=== PATIENT | female | born 1990 | race Caucasian/White ===

== ENCOUNTER 2022-07-01 16:50 | Emergency (ER) | payer BC, SELFPAY ==
[2022-07-01 17:31] VITALS: BP 138/93; PULSE 82; RESP 16; TEMP 36.9; O2SAT 99; BMI 24.7
--- NOTE | 2022-07-01 17:49 | EXP.UTC ---
Discharge Plan Disposition Patient Disposition: Home, Self-Care Condition: Good Prescriptions Prescriptions: New methylprednisolone [Medrol (Herson)] 4 mg tablets,dose pack See Rx Instructions .Route .COMPLEX 6 Days Qty: 21 0RF Rx Instructions: taper pack; hydrocortisone 2.5 % cream 1 applic topical BID PRN (Reason: skin irritation) Qty: 30 0RF Rx Instructions: apply to rash as directed Referrals Follow up/Referrals: Shady Asencio [Primary Care Provider] - See instructions Activity Restrictions/Add. Instructions Additional Instructions/Restrictions: Take medication as prescribed Over the counter Benadryl may help with itching Oatmeal bathes may help too soothe the skin Follow up with your Family Doctor if no improvment or any worsening of symptoms Clinical Impressions Clinical Impression: Allergic dermatitis Instructions Patient Instructions: Contact Dermatitis Discharge ED Provider: Phylicia Donahue [facility] [place] HPI General Stated complaint: RASH ON BODY Mode of Arrival: Ambulatory Source of Information: Patient Limitations: No Limitations Time Seen by Provider: 07/01/22 17:49 Description of Symptoms (Recalled from Triage Doc. by RN): pt comes in with c/o rash. pt went to [facility] on a vacation and while there began having the rash and since she has returned home the rash has gotten worse. HEENT Symptoms (Recalled from RN notes): No Resp Symptoms (Recalled from RN notes): No Skin Symptoms (Recalled from RN notes): Yes MS Symptoms (Recalled from RN notes): No Functional Status (Recalled from RN notes): n/a History of Present Illness Provider Complaint: Patient states that she was recently in [facility] and not sure what she may have got into but she and her broke out in rash all over their bodys and have been itching States that he was seen earlier today and given steriod injection but she doesnt want to take a shot she will take oral medication and cream for it but no shots Related Data Previous Rx's Medication Instructions Recorded hydrocortisone 2.5 % topical cream 1 applic topical BID PRN skin 07/01/22 irritation #30 grams methylprednisolone 4 mg tablets in See Rx Instructions .Route 07/01/22 a dose pack (Medrol (Herson)) .COMPLEX 6 days #21 tabs Allergies Allergy/AdvReac Type Severity Reaction Status Date / Time Penicillins Allergy Verified 07/01/22 17:40 Worker's Comp Is this a Worker's Comp case?: No PFSH PFSH Social History (Updated 07/01/22 @ 17:40 by Jayden Miller RN) Smoking Status: Never smoker alcohol intake: never current occupational status: employed Travel in the last 8 weeks: Outside the continental [facility] ROS Obtained: Yes All systems reviewed & no additional complaints except as documented and Yes Systems reviewed as appropriate & no additional complaints except as documented Constitutional Constitutional: Reports system reviewed and no additional complaints, except as documented and Reports as per HPI Cardiovascular Cardiovascular: Reports system reviewed and no additional complaints, except as documented and Reports as per HPI Respiratory Respiratory: Reports system reviewed and no additional complaints, except as documented and Reports as per HPI Integumentary/Breasts Skin/Breast: Reports system reviewed and no additional complaints, except as documented, Reports as per HPI, Reports pruritus and Reports rash Physical Exam General General appearance: alert and in no apparent distress ENT ENT exam: Present normal exam, normal oropharynx, mucous membranes moist and TM's normal bilaterally Respiratory Respiratory exam: Present normal lung sounds bilaterally and respiratory distress Cardiovascular Cardiovascular exam: Present regular rate and normal rhythm; Absent bradycardia Neurological Exam Neurological exam: Present alert and oriented X3 Skin Skin exam: Present other (red raised eczematous rash noted all over body appears like con
[2022-07-01 18:13] VITALS: BP 138/93; PULSE 82; RESP 16; TEMP 36.9
== END 2022-07-01 18:15 | disposition home or self-care (01) ==
PROVIDERS: Emergency Provider Nurse Practitioner; PCP Family Medicine
DX: L23.9 Allergic contact dermatitis, unspecified cause (principal)
CPT/HCPCS: 99212; G0463

== ENCOUNTER 2023-07-16 19:24 | Emergency (ER) | payer BC, SELFPAY ==
[2023-07-16 19:24] VITALS: BP 141/99; PULSE 97; RESP 18; TEMP 36.4; O2SAT 99; BMI 26.2
--- NOTE | 2023-07-16 19:53 | EXP.UTC ---
Discharge Plan Disposition Patient Disposition: Home, Self-Care Condition: Good Prescriptions Prescriptions: New azithromycin [azithromycin] 250 mg tablet 250 mg PO DIRECTED Qty: 4 0RF Rx Instructions: one (1) tablet day #2 thru #5- first dose in [facility] No Action methylprednisolone [Medrol (Herson)] 4 mg tablets,dose pack See Rx Instructions .Route .COMPLEX 6 Days Qty: 21 0RF Rx Instructions: taper pack; hydrocortisone 2.5 % cream 1 applic topical BID PRN (Reason: skin irritation) Qty: 30 0RF Rx Instructions: apply to rash as directed Referrals Follow up/Referrals: Shady Asencio [Primary Care Provider] - See instructions Clinical Impressions Clinical Impression: Strep sore throat Instructions Patient Instructions: DI for Strep Throat [facility] [place] HPI General Stated complaint: sore throat Mode of Arrival: Ambulatory Source of Information: Patient Limitations: No Limitations Time Seen by Provider: 07/16/23 19:53 HEENT Symptoms (Recalled from RN notes): Yes History of Present Illness Provider Complaint: 33 yr old female presents for sore throat. pt states throat started on tuesday and then continues to worsen Related Data Previous Rx's Medication Instructions Recorded hydrocortisone 2.5 % topical cream 1 applic topical BID PRN skin 07/01/22 irritation #30 grams methylprednisolone 4 mg tablets in See Rx Instructions .Route 07/01/22 a dose pack (Medrol (Herson)) .COMPLEX 6 days #21 tabs azithromycin 250 mg tablet 250 mg PO DIRECTED #4 tabs 07/16/23 Allergies Allergy/AdvReac Type Severity Reaction Status Date / Time Penicillins Allergy Verified 07/01/22 17:40 [facility] Disclaimer: The information contained in this section may have been updated after the patient was seen, as this information can be updated by other users. Social History , [employer]) Smoking Status: Never smoker alcohol intake: never current occupational status: employed Travel in the last 8 weeks: Outside the continental [facility] ROS Obtained: Yes All systems reviewed & no additional complaints except as documented Constitutional Constitutional: Reports system reviewed and no additional complaints, except as documented Eyes Eyes: Reports system reviewed and no additional complaints, except as documented ENT Ears, Nose, Mouth, and Throat: Reports system reviewed and no additional complaints, except as documented, Reports as per HPI and Reports sore throat Cardiovascular Cardiovascular: Reports system reviewed and no additional complaints, except as documented Respiratory Respiratory: Reports system reviewed and no additional complaints, except as documented Gastrointestinal Gastrointestingal: Reports system reviewed and no additional complaints, except as documented Musculoskeletal Musculoskeletal: Reports system reviewed and no additional complaints, except as documented Integumentary/Breasts Skin/Breast: Reports system reviewed and no additional complaints, except as documented Neurologic Neurologic: Reports system reviewed and no additional complaints, except as documented Endocrine Endocrine: Reports system reviewed and no additional complaints, except as documented Hematologic/Lymphatic Henatologic/Lymphatic: Reports system reviewed and no additional complaints, except as documented Physical Exam General General appearance: alert and in no apparent distress Head Head exam: atraumatic Eye Eye exam: Present normal appearance and PERRL ENT ENT exam: Present TM's normal bilaterally Respiratory Respiratory exam: Present normal lung sounds bilaterally Cardiovascular Cardiovascular exam: Present regular rate and normal rhythm Neurological Exam Neurological exam: Present alert and oriented X3 Skin Skin exam: Present warm Medical Decision Making Medical Records Medical records reviewed
[2023-07-16 20:28] VITALS: BP 141/99; PULSE 97; RESP 18; TEMP 36.4; O2SAT 99
[2023-07-17 12:57] LABS: UTC Strep Screen (Rapid) Negative (Negative)
== END 2023-07-16 20:28 | disposition home or self-care (01) ==
PROVIDERS: Emergency Provider Nurse Practitioner Family; PCP Family Medicine
DX: J02.0 Streptococcal pharyngitis (principal)
CPT/HCPCS: 87880; 99212; 99214; G0463

== ENCOUNTER 2023-07-28 14:03 | Emergency (ER) | payer BC, SELFPAY ==
[2023-07-28 14:20] VITALS: BP 141/86; PULSE 83; RESP 20; TEMP 36.9; O2SAT 97; BMI 25.6
--- NOTE | 2023-07-28 14:51 | EXP.UTC ---
Discharge Plan Disposition Patient Disposition: Home, Self-Care Condition: Good Referrals Follow up/Referrals: Tae Lazaro [Primary Care Provider] - See instructions Activity Restrictions/Add. Instructions Additional Instructions/Restrictions: *Monitor Temp, Over the counter Motrin or Tylenol as directed/as needed Tylenol every 4 hours and Motrin every 6 hours (as long as your family doctor has told you that you can take it) for fever or pain. and straight to ER if unable to lower temp less than 101.0 after medication given *Warm salt water gargles may help to soothe the throat *Throat Lozenges? *Warm fluids like tea with honey may help to soothe the throat? *Sleep elevated *Humidifier/Vaporizer *Flonase 2 sprays in each nostril daily but be aware that it may take 2-3 days before you notice improvement Your throat swab was sent for culture. Those results are typically sent to your primary care. Be sure to follow up in 2-3 days with your family doctor/primary care physician if no improvement so they can review those result and treat if necessary. If you don?t have a primary care doctor, I recommend you get one but in the mean time, you will have to return to a walk in clinic Follow up IMMEDIATELY for new or worsening symptoms or no Noticeable improvement over the next 48-72 hours. 911 for difficulty breathing or swallowing Clinical Impressions Clinical Impression: Viral pharyngitis Instructions Patient Instructions: Sore Throat, DI for Viral Pharyngitis Discharge ED Provider: Phylicia Donahue [facility] [place] HPI General Stated complaint: sore throat, congestion Mode of Arrival: Ambulatory Source of Information: Patient Limitations: No Limitations Time Seen by Provider: 07/28/23 14:52 Description of Symptoms (Recalled from Triage Doc. by RN): PATIENT C/O SORE THROAT, CONGESTION, AND FATIGUE THAT STARTED OVER THE WEEKEND. SHE STATES SHE WAS RECENTLY TREATED FOR STREP AND STARTED TO FEEL BETTER, BUT SYMPTOMS RETURNED HEENT Symptoms (Recalled from RN notes): Yes Resp Symptoms (Recalled from RN notes): No Skin Symptoms (Recalled from RN notes): No MS Symptoms (Recalled from RN notes): No Functional Status (Recalled from RN notes): WNL History of Present Illness Provider Complaint: Patient states that she was recently seen and treated for strep throat and finished the medication states that she was feeling better but now symptoms has returned States that she is having sore throat, fatigue and over all not feeling well so today she came back in States that her friends daughter has mono Related Data Allergies Allergy/AdvReac Type Severity Reaction Status Date / Time Penicillins Allergy Verified 07/16/23 20:06 Worker's Comp Is this a Worker's Comp case?: No [facility] Disclaimer: The information contained in this section may have been updated after the patient was seen, as this information can be updated by other users. Medical History (Updated 07/28/23 @ 15:16 by Phylicia Donahue APRN) Urinary tract infection Social History Smoking Status: Never smoker alcohol intake: never current occupational status: employed Travel in the last 8 weeks: Outside the [facility] ROS Obtained: Yes All systems reviewed & no additional complaints except as documented and Yes Systems reviewed as appropriate & no additional complaints except as documented Constitutional Constitutional: Reports system reviewed and no additional complaints, except as documented, Reports as per HPI and Reports fatigue Eyes Eyes: Reports system reviewed and no additional complaints, except as documented and Reports as per HPI ENT Ears, Nose, Mouth, and Throat: Reports system reviewed and no additional complaints, except as documented, Reports as per HPI and Reports sore throat Cardiovascular Cardiovascular: Reports system reviewed and no additional co
[2023-07-28 15:11] LABS: Monoscreen (Rapid) Negative (Negative)
[2023-07-28 15:20] VITALS: BP 141/86; PULSE 83; RESP 20; TEMP 36.9; O2SAT 97
== END 2023-07-28 15:24 | disposition home or self-care (01) ==
PROVIDERS: Emergency Provider Nurse Practitioner; PCP Obstetrics & Gynecology Gynecology
DX: J02.9 Acute pharyngitis, unspecified (principal); R09.81 Nasal congestion; R53.83 Other fatigue; B34.9 Viral infection, unspecified
CPT/HCPCS: 86318; 99212; 99213; G0463

== ENCOUNTER 2023-12-05 16:16 | Emergency (ER) | payer BC, SELFPAY ==
[2023-12-05 16:30] VITALS: BP 146/86; PULSE 126; RESP 20; TEMP 39.4; O2SAT 97; BMI 26.8
--- NOTE | 2023-12-05 16:40 | ED_ITS ---
Discharge Plan Disposition Patient Disposition: Home, Self-Care Condition: Good Prescriptions Prescriptions: New azithromycin [Zithromax Z-Herson] 250 mg tablet See Rx Instructions .ROUTE .COMPLEX 5 Days Qty: 6 0RF Rx Instructions: For 250 mg dose pack: take 500 mg today (day 1), then 250 mg for 4 days (days 2-5) ondansetron 4 mg Tablet,Disintegrating 4 mg PO Q8H PRN (Reason: Nausea) Qty: 20 0RF Referrals Follow up/Referrals: Shady Asencio [Primary Care Provider] - See instructions Activity Restrictions/Add. Instructions Additional Instructions/Restrictions: *Monitor Temp, Over the counter Motrin or Tylenol as directed/as needed Tylenol every 4 hours and Motrin every 6 hours (as long as your family doctor has told you that you can take it) for fever or pain. and straight to ER if unable to lower temp less than 101.0 after medication given *Warm salt water gargles may help to soothe the throat *Throat Lozenges? *Warm fluids like tea with honey may help to soothe the throat? *Sleep elevated *Humidifier/Vaporizer *If you did not take Penicillin shot or was unable to, start taking antibiotic immediately and make sure that you take it for the FULL length of time although you should start to feel better in 24-48 hours *change toothbrush and toothpaste 24-48 hours after starting to take antibiotics so you do not reinfect yourself Monitor Temp. Tylenol and/or Ibuprofen as needed. ER if fever is no less than 101 despite alternating Tylenol and Ibuprofen * Encourage fluids, water, Gatorade, powerade, pedialyte if /toddler/or child*Cold fluids, popsicles and ice cream may feel good on his throat Follow up IMMEDIATELY for new or worsening symptoms or no Noticeable improvement over the next 48-72 hours. 911 for difficulty breathing or swallowing Clinical Impressions Clinical Impression: Strep sore throat Instructions Patient Instructions: Strep Throat, DI for Strep Throat, DI for Fever (Symptom) -- Adult, DI for Headache Discharge ED Provider: Phylicia Donahue [facility] [place] HPI General Stated complaint: SOLOMON fever body aches Mode of Arrival: Ambulatory Source of Information: Patient Limitations: No Limitations Time Seen by Provider: 12/05/23 16:40 Description of Symptoms (Recalled from Triage Doc. by RN): PATIENT C/O FEVER, BODY ACHES, CHILLS, SORE THROAT AND VOMITING HEENT Symptoms (Recalled from RN notes): Yes Resp Symptoms (Recalled from RN notes): No Skin Symptoms (Recalled from RN notes): No MS Symptoms (Recalled from RN notes): No Functional Status (Recalled from RN notes): WNL History of Present Illness Provider Complaint: Patient states that she has been having fever, chills, body aches, headache, sore throat and vomiting States today she was feeling worse and noticed she had bad breath and she brushed her teeth but still had the smell on her breath States that she took Motrin earlier but it didnt help to bring her fever down so she came in to get checked Related Data Previous Rx's Medication Instructions Recorded azithromycin 250 mg tablet See Rx Instructions PO .COMPLEX 5 12/05/23 (Zithromax Z-Herson) days #6 tabs ondansetron 4 mg disintegrating 4 mg PO Q8H PRN Nausea #20 tabs 12/05/23 tablet Allergies Allergy/AdvReac Type Severity Reaction Status Date / Time Penicillins Allergy Verified 07/16/23 20:06 Worker's Comp Is this a Worker's Comp case?: No [facility] Disclaimer: The information contained in this section may have been updated after the patient was seen, as this information can be updated by other users. Medical History (Updated 12/05/23 @ 16:52 by Phylicia Donahue APRN) Urinary tract infection Social History Smoking Status: Never smoker alcohol intake: never current occupational status: employed Travel in the last 8 weeks: Outside the [facility] ROS Obtained: Yes All systems reviewed & no additional complaints except as documented and Yes Systems reviewed as appropriate & no additional complaints except as documented Constitutional Constitutional: Reports system reviewed and no additional complaints, except as documented, Reports as per HPI, Reports body ache, Reports chills, Reports fever(s) and Reports headache(s) ENT Ears, Nose, Mouth, and Throat: Reports system reviewed and no additional complaints, except as documented, Reports as per HPI, Reports headache(s) and Reports sore throat Cardiovascular Cardiovascular: Reports system reviewed and no additional complaints, except as documented and Reports as per HPI Respiratory Respiratory: Reports system reviewed and no additional complaints, except as documented and Reports as per HPI Gastrointestinal Gastrointestingal: Reports system reviewed and no additional complaints, except as documented, as per HPI, nausea and vomiting Neurologic Neurologic: Reports headache(s) Physical Exam General General appearance: alert and in no apparent distress ENT ENT exam: Present mucous membranes moist Expanded ENT Exam Throat exam: Present tonsillar erythema and tonsillar exudate Respiratory Respiratory exam: Present normal lung sounds bilaterally; Absent respiratory distress or wheezes Cardiovascular Cardiovascular exam: Present regular rate, normal rhythm and normal heart sounds Neurological Exam Neurological exam: Present alert, oriented X3 and normal gait Medical Decision Making Christiano Inquiry Pt receiving controlled substance: No Christiano was queried for this patient: No Vital Signs: 12/05/23 16:30 Temperature 102.9 F H Temperature Source Oral Pulse Rate [Left Brachial] 126 H Respiratory Rate 20 Blood Pressure [Left Arm] 146/86 H Blood Pressure Mean [Left Arm] 106 Blood Pressure Source [Left Arm] Automatic Cuff Blood Pressure Position [Left Arm] Sitting 02 Sat by Pulse Oximetry 97 Oxygen Delivery Method Room Air Lab Data Lab results reviewed: Yes I reviewed the patient's lab results. Medical Decision Narrative: Patient checked her phone to see what time she took Motrin and realized she took it at 815 this am not a few hours ago therefore will give Motrin in the [facility]
[2023-12-05] MEDS: ACETAMINOPHEN 325MG TAB 650 MG PO (16:43)
[2023-12-05] MEDS: ONDANSETRON 4MG ODT 4 MG SL (16:43)
[2023-12-05 16:48] LABS: UTC Influenza A Antigen Negative (Negative); UTC Strep Screen (Rapid) Positive (Negative)
[2023-12-05 16:51] LABS: UTC Influenza B Antigen Negative (Negative)
[2023-12-05] MEDS: IBUPROFEN 400 MG TABLET 800 MG PO (17:00)
[2023-12-05 17:05] VITALS: BP 146/86; PULSE 126; RESP 20; TEMP 38.9; O2SAT 97
== END 2023-12-05 17:35 | disposition home or self-care (01) ==
PROVIDERS: Emergency Provider Nurse Practitioner; PCP Family Medicine
DX: J02.0 Streptococcal pharyngitis (principal); R07.0 Pain in throat; R51.9 Headache, unspecified; R50.9 Fever, unspecified; R11.2 Nausea with vomiting, unspecified
CPT/HCPCS: 87804; 87880; 99212; 99214; G0463

== ENCOUNTER 2023-12-06 18:22 | Emergency (ER) | payer BC, SELFPAY ==
[2023-12-06 18:23] VITALS: BP 156/98; PULSE 95; RESP 18; TEMP 36.9; O2SAT 98; BMI 25.6
[2023-12-06] MEDS: LACTATED RINGERS 1000ML 1,000 ML 999 ML IV (18:38)
[2023-12-06] MEDS: diphenhydrAMINE 50MG/ML VIAL 25 MG IV (18:38)
[2023-12-06] MEDS: PROCHLORPERAZINE 10MG/2ML VIAL 10 MG IV (18:39)
[2023-12-06] MEDS: DEXAMETHASONE 4MG/ML 1ML VIAL 10 MG IV (18:39)
--- NOTE | 2023-12-06 18:39 | HMH.EDGENADL ---
Discharge Plan Disposition Patient Disposition: Home, Self-Care Prescriptions Prescriptions: New prochlorperazine maleate [Compazine] 10 mg tablet 10 mg PO Q6H PRN (Reason: nausea and vomiting) 1 Days Qty: 20 0RF No Action azithromycin [Zithromax Z-Herson] 250 mg tablet See Rx Instructions .ROUTE .COMPLEX 5 Days Qty: 6 0RF Rx Instructions: For 250 mg dose pack: take 500 mg today (day 1), then 250 mg for 4 days (days 2-5) ondansetron 4 mg Tablet,Disintegrating 4 mg PO Q8H PRN (Reason: Nausea) Qty: 20 0RF Referrals Follow up/Referrals: Shady Asencio [Primary Care Provider] - See instructions Activity Restrictions/Add. Instructions Additional Instructions/Restrictions: Call your family doctor to establish care for this visit to the emergency department and schedule follow-up within 48 hours to ensure improvement. If you have any worsening of your condition or any other concerning signs or symptoms, return to the emergency department or your primary care doctor for further evaluation. Compazine, Benadryl, acetaminophen, and ibuprofen for rebound headache. Clinical Impressions Clinical Impression: Migraine Qualifiers: Migraine type: other Status migrainosus presence: with status migrainosus Intractability: intractable Qualified Code(s): G43.811 - Other migraine, intractable, with status migrainosus Discharge ED Provider: Jorge Shipman General Adult HPI General Chief complaint: Headache Stated complaint: migraine, strep + Time Seen by Provider: 12/06/23 18:23 History of Present Illness HPI narrative: This is an otherwise healthy 33-year-old female presenting with migraine headache that is intractable. Patient has been having headache symptoms for about 2 days as well as sore throat. Was tested for strep pharyngitis yesterday, returned positive, patient started on azithromycin. Took her second dose today, 12/05. Patient states that she has had a headache that is crescendo in nature, largely right-sided, associated with photophobia and phonophobia, radiates into her right eye. It is severe in intensity, throbbing. refractory to ibuprofen and tylenol. No meningismus, vision changes, neurologic deficits, or any other concerns. Please note that above description of symptoms, in this electronic medical record under categorization of recalled from ER triage doctor by RN are reflective of an initial nursing assessment, however, is not reflective of my full history and physical exam that was personally taken and clarified. Consequentially, this preceding description of symptoms, which may include the patient's categorized chief complaint in the EMR, do not reflect my personal clinical impression, and the ultimate description of history of present illness and patient stated complaints should be deferred to this section of the note. Unless stated otherwise or congruent with this section of the note, additional signs, symptoms, or incongruence should be interpreted as inaccurate with my clinical impression. Related Data Previous Rx's Medication Instructions Recorded azithromycin 250 mg tablet See Rx Instructions PO .COMPLEX 5 12/05/23 (Zithromax Z-Herson) days #6 tabs ondansetron 4 mg disintegrating 4 mg PO Q8H PRN Nausea #20 tabs 12/05/23 tablet prochlorperazine maleate 10 mg 10 mg PO Q6H PRN nausea and 12/06/23 tablet (Compazine) vomiting 24 hours #20 tabs Allergies Allergy/AdvReac Type Severity Reaction Status Date / Time Penicillins Allergy Verified 12/06/23 18:46 PFSH [facility] Disclaimer: The information contained in this section may have been updated after the patient was seen, as this information can be updated by other users. Medical History (Updated 12/06/23 @ 19:48 by Jorge Shipman MD) Urinary tract infection Social History Smoking Status: Never smoker alcohol intake: never current occupational status: employed Travel in the last 8 weeks: Outside the [facility] ROS Obtained: Yes All systems reviewed & no additional complaints except as documented Physical Exam General General appearance: alert and in no apparent distress Head Head exam: atraumatic and normocephalic Eye Eye exam: Present normal appearance, PERRL and EOMI ENT ENT exam: Present mucous membranes moist Neck Neck exam: Present normal inspection, full ROM, trachea midline and lymphadenopathy; Absent meningismus Respiratory Respiratory exam: Absent respiratory distress, wheezes, stridor, accessory muscle use or prolonged expiratory phase Cardiovascular Cardiovascular exam: Present normal rhythm Abdominal Exam Abdominal exam: Present soft; Absent distention, tenderness, guarding, rebound or rigidity Extremities Exam Extremities exam: Absent edema Neurological Exam Neurological exam: Present alert, oriented X3, CN II-XII intact and normal gait; Absent motor sensory deficit Skin Skin exam: Present warm and dry; Absent diaphoresis or erythema Medical Decision Making Medical Records Medical records reviewed: Yes I reviewed the patient's medical records. Christiano Inquiry Pt receiving controlled substance: No Christiano was queried for this patient: No Vital Signs: 12/06/23 18:23 12/06/23 19:00 12/06/23 19:30 Temperature 98.4 F Temperature Source Oral Pulse Rate 82 80 Pulse Rate [Left Radial] 95 H Respiratory Rate 18 18 16 Blood Pressure 105/70 L 100/67 L Blood Pressure [Right Arm] 156/98 H Blood Pressure Mean 81 73 Blood Pressure Mean [Right Arm] 117 Blood Pressure Source [Right Arm] Automatic Cuff Blood Pressure Position [Right Arm] Sitting 02 Sat by Pulse Oximetry 98 96 98 Oxygen Delivery Method Room Air Room Air Room Air Orders (Tests/Meds): ED MEDICATIONS Discontinued Medications Generic Name Dose Route Start Last Admin Trade Name Freq PRN Reason Stop Dose Admin Dexamethasone Sodium Phosphate 10 mg 12/06/23 18:31 12/06/23 18:39 Dexamethasone 4mg/Ml 1ml Vial IV 12/06/23 18:32 10 mg ONCE ONE Administration Diphenhydramine HCl 25 mg 12/06/23 18:31 12/06/23 18:38 Diphenhydramine 50mg/Ml Vial IV 12/06/23 18:32 25 mg ONCE ONE Administration Lactated Ringer's 1,000 mls @ 999 mls/hr 12/06/23 18:31 12/06/23 18:38 Lactated Ringer's 1000 Ml Bag IV 12/06/23 19:31 999 mls/hr .Q1H1M ONE Administration Magnesium Sulfate 2 gm in 50 mls @ 50 mls/hr 12/06/23 18:31 12/06/23 18:40 Magnesium Sulfate 2gm/50ml Premix IV 12/06/23 19:30 50 mls/hr ONCE ONE Administration Ketorolac Tromethamine 15 mg 12/06/23 18:31 12/06/23 18:40 Ketorolac 30mg/Ml Vial IV 12/06/23 18:32 15 mg ONCE ONE Administration Prochlorperazine Edisylate 10 mg 12/06/23 18:31 12/06/23 18:39 Prochlorperazine 10mg/2ml Vial IV 12/06/23 18:32 10 mg ONCE ONE Administration Medical Decision Narrative: This is an otherwise healthy 33-year-old female presenting with migraine headache that is intractable. Patient has been having headache symptoms for about 2 days as well as sore throat. Was tested for strep pharyngitis yesterday, returned positive, patient started on azithromycin. Took her second dose today, 12/05. Patient states that she has had a headache that is crescendo in nature, largely right-sided, associated with photophobia and phonophobia, radiates into her right eye. It is severe in intensity, throbbing. refractory to ibuprofen and tylenol. No meningismus, vision changes, neurologic deficits, or any other concerns. History was obtained via conversation with patient. On arrival, patient hemodynamically stable, alert, oriented x4, appropriate, GCS 15, moving all extremities spontaneously, pupils equal and reactive to light. Full physical exam performed and significant for shotty cervical lymphadenopathy. Neurologically intact including cranial nerve, cerebellar, motor and sensory exams. Pain made better with application of pressure to the right side of the head. Differential includes migraine, headache, cerebral DVT, intracranial mass, among others. Patient was given Toradol, Decadron, fluids, Compazine, Benadryl, magnesium as migraine cocktail and reassess. On reassessment at approximately 7:45 PM, patient states that she feels much better. Minimal headache and ready to go home. Patient was given Compazine for home-going and close return precautions. Because patient at baseline without signs or symptoms of clinical decompensation, deemed appropriate for discharge. Results were relayed to patient who voiced understanding and were agreeable to outpatient management and follow up. I discussed my clinical impression with patient and answered all questions. At this time, the evidence for any other entities in the differential is insufficient to warrant any further testing or ED observation. This was explained as well. Advisory was given that persistent or worsening symptoms require further evaluation. I confirmed the understanding of this discussion. Critical Care Critical Care Time Critical Care Time: No
[2023-12-06] MEDS: MAGNESIUM SULFATE IN WATER 2 GM/50 ML PIGGYBACK IV (18:40)
[2023-12-06] MEDS: KETOROLAC 30MG/ML VIAL 15 MG IV (18:40)
[2023-12-06 19:00] VITALS: BP 105/70; PULSE 82; RESP 18; O2SAT 96
--- NOTE | 2023-12-06 19:12 | PC.NURSE ---
Pt states her headache is better, provided pillow, no other needs at this time.
[2023-12-06 19:30] VITALS: BP 100/67; PULSE 80; RESP 16; O2SAT 98
[2023-12-06 19:48] VITALS: BP 100/67; PULSE 78; RESP 16; TEMP 36.9; O2SAT 97
== END 2023-12-06 19:53 | disposition home or self-care (01) ==
PROVIDERS: Emergency Provider Emergency Medicine; PCP Family Medicine
DX: G43.811 Other migraine, intractable, with status migrainosus (principal)
CPT/HCPCS: 96365; 96375; 99285; J3475

== ENCOUNTER 2024-09-27 09:44 | Emergency (ER) | payer BC, SELFPAY ==
[2024-09-27 10:17] VITALS: BP 120/80; PULSE 102; RESP 18; TEMP 37; O2SAT 97; BMI 28.0
[2024-09-27 10:25] LABS: UTC Strep Screen (Rapid) Positive (Negative)
--- NOTE | 2024-09-27 10:36 | EXP.UTC ---
Discharge Plan Disposition Patient Disposition: Home, Self-Care Condition: Good Prescriptions Prescriptions: New clindamycin HCl 300 mg capsule 300 mg PO Q8H Qty: 30 0RF methylprednisolone 4 mg Tablets,Dose Pack 4 mg PO DIRECTED 6 Days Qty: 21 0RF Rx Instructions: Take 1 pack as directed for 6 days ondansetron 4 mg Tablet,Disintegrating 4 mg PO Q8H PRN (Reason: Nausea) Qty: 12 0RF Referrals Follow up/Referrals: Shady Asencio [Primary Care Provider] - See instructions Activity Restrictions/Add. Instructions Additional Instructions/Restrictions: Drink plenty of fluids. Take tylenol or ibuprofen for pain or fever. Take the medications as directed. Follow up with your regular doctor. GO TO THE ER FOR ANY WORSENING SYMPTOMS Throw your tooth brush away and get a new one. Clinical Impressions Clinical Impression: Strep throat Instructions Patient Instructions: Strep Throat, DI for Strep Throat, Ondansetron, Clindamycin, Methylprednisolone Print Language Print Language: Marshallese Discharge ED Provider: Geoff Centeno [facility] General Stated complaint: sore throat, fever, body aches, headache Mode of Arrival: Ambulatory Source of Information: Patient Time Seen by Provider: 09/27/24 10:36 Description of Symptoms (Recalled from Triage Doc. by RN): SORE THROAT, FEVER, BA, SOLOMON HEENT Symptoms (Recalled from RN notes): Yes Resp Symptoms (Recalled from RN notes): Yes Skin Symptoms (Recalled from RN notes): No MS Symptoms (Recalled from RN notes): No Functional Status (Recalled from RN notes): WNL History of Present Illness Provider Complaint: She states that for the past 2 days she has had worsening sore throat, fever, chills, and malaise. Related Data Previous Rx's ?Medication ?Instructions ?Recorded clindamycin HCl 300 mg capsule 300 mg PO Q8H #30 caps 09/27/24 methylprednisolone 4 mg tablets in 4 mg PO DIRECTED 6 days #21 tabs 09/27/24 a dose pack ondansetron 4 mg disintegrating 4 mg PO Q8H PRN Nausea #12 tabs 09/27/24 tablet Allergies Allergy/AdvReac Type Severity Reaction Status Date / Time Penicillins Allergy Verified 12/06/23 18:46 Worker's Comp Is this a Worker's Comp case?: No [facility] Disclaimer: The information contained in this section may have been updated after the patient was seen, as this information can be updated by other users. Medical History (Updated 09/27/24 @ 11:02 by Geoff Centeno APRN) Urinary tract infection Social History Smoking Status: Never smoker alcohol intake: never current occupational status: employed Travel in the last 8 weeks: Outside the [place] Have you lived/traveled outside US in past 30 days?: No Contact w/someone who lives/traveled outside US past 30 days?: No Exposure to someone with infectious disease in past 14 days?: No Do you have a fever (greater than 100.4 F or 38 C)?: No Have you tested positive for COVID-19: No Exposed to someone with COVID-19 in past 14 days?: No Do you have a sore throat?: Yes Do you have a cough?: No Do you have any weakness?: No Do you have any diarrhea?: No Are you experiencing any unusual bleeding?: No Do you have any muscle aches/pain?: Yes Do you have any abdominal pain?: No Are you experiencing loss of taste or smell?: No ROS Obtained: Yes All systems reviewed & no additional complaints except as documented Constitutional Constitutional: Reports chills and Reports fever(s) Eyes Eyes: Denies eye discharge ENT Ears, Nose, Mouth, and Throat: Reports as per HPI Cardiovascular Cardiovascular: Denies chest pain Respiratory Respiratory: Denies chest congestion and Reports cough Gastrointestinal Gastrointestingal: Reports nausea; Denies abdominal pain, constipation, cramping, diarrhea or vomiting Musculoskeletal Musculoskeletal: Denies arthralgias Integumentary/Breasts Skin/Breast: Denies rash Neurologic Neurologic: Denies paresthesias Physical Exam General General appearance: alert and in no apparent distress Head Head exam: atraumatic, normocephalic and normal inspection Eye Eye exam: Present normal appearance, PERRL and EOMI ENT ENT exam: Present mucous membranes moist and normal external ear exam Expanded ENT Exam TM/Canal exam: Bilateral TM: erythema and bulging Nose exam: Absent sinus tenderness Mouth exam: Present normal external inspection; Absent drooling Teeth exam: Present normal inspection Throat exam: Present tonsillar erythema, tonsillomegaly and tonsillar exudate Neck Neck exam: Present normal inspection, full ROM and trachea midline; Absent tenderness, meningismus or lymphadenopathy Chest Chest inspection: Present normal inspection and symmetric chest wall rise; Absent tenderness Respiratory Respiratory exam: Present normal lung sounds bilaterally; Absent respiratory distress, wheezes, stridor or accessory muscle use Cardiovascular Cardiovascular exam: Present regular rate and normal rhythm; Absent systolic murmur or diastolic murmur Abdominal Exam Abdominal exam: Present soft and normal bowel sounds; Absent distention, tenderness, guarding, rebound or rigidity Extremities Exam Extremities exam: Present normal inspection and normal capillary refill; Absent calf tenderness Back Exam Back exam: Present normal inspection and full ROM; Absent tenderness, CVA tenderness (R) or CVA tenderness (L) Neurological Exam Neurological exam: Present alert, oriented X3 and CN II-XII intact Psychiatric Psychiatric exam: Present normal affect and normal mood Skin Skin exam: Present warm, dry, intact and normal color Medical Decision Making Medical Records Medical records reviewed: No I reviewed the patient's medical records. Screening: Per USPSTF and CDC recommendations, given the prevalence of disease in our region, it is our hospital?s policy to screen for HIV and viral Hepatitis for all patients aged 18 and over and those with ongoing risk factors. Christiano Inquiry Pt receiving controlled substance: No Vital Signs: 09/27/24 10:17 Temperature 98.6 F Temperature Source Oral Pulse Rate [Left Radial] 102 H Respiratory Rate 18 Blood Pressure [Left Arm] 120/80 Blood Pressure Mean [Left Arm] 93 02 Sat by Pulse Oximetry 97 Lab Data Lab results reviewed: Yes I reviewed the patient's lab results. Lab Results 09/27/24 10:19: Strep Scn [facility] Positive A
[2024-09-27 11:07] VITALS: BP 120/80; PULSE 102; RESP 18; TEMP 37
== END 2024-09-27 11:10 | disposition home or self-care (01) ==
PROVIDERS: Emergency Provider Nurse Practitioner Family; PCP Family Medicine
DX: J02.0 Streptococcal pharyngitis (principal)
CPT/HCPCS: 87880; 99213; G0381